=== PATIENT | female | born 1970 | race Caucasian/White ===

== ENCOUNTER 2017-07-13 11:54 | Emergency (ER) | payer OTHER ==
[2017-07-13] MEDS ORDERED: SODIUM CHLORIDE 0.9% 1000 ML INFUS.BAG IV ONE (11:55)
[2017-07-13] MEDS ORDERED: ONDANSETRON 4 MG/2 ML VIAL IVPUSH ONE (11:55)
[2017-07-13] MEDS ORDERED: ACETAMINOPHEN 1000 MG/100 ML VIAL (NON FORMULARY) IVPB ONE (11:55)
--- NOTE | 2017-07-13 11:55 | PDOC ---
History of Present Illness - General Chief Complaint: Pain, Acute Stated Complaint: LEFT FLANK PAIN Time Seen by Provider: 07/13/17 11:55 - History of Present Illness Initial Comments: 07/13/17 12:05 47yo female presents ambulatory from home c/o acute onset at 10am of L flank pain. States she was sitting at the table eating breakfast when the pain started in her back and radiated around to her LLQ. States the pain comes and goes and she cannot get comfortable. Pt states she had a normal bm this AM and no difficulty urinating. Pt states she has assoc n/v - 2 episodes that are nonbloody and nonbilious. Pt tearful and appears uncomfortable. Pt denies f/c. No cp/sob. No recent illness. States she had imaging done in [place] when she was younger because of recurrent bladder infections that showed "crystals in the kidney" on the Right. No prior episodes of similar pain. 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 PMHx: bladder infections when she was younger PSHx: c section x 3 Allergies: NKDA Home MEds: mirena Past History - Past Medical History Allergies/Adverse Reactions: Allergies Allergy/AdvReac Type Severity Reaction Status Date / Time No Known Allergies Allergy Verified 07/13/17 12:20 Home Medications: Ambulatory Orders Cephalexin Monohydrate [Keflex -] 500 mg PO Q8H #21 capsule 07/13/17 Ketorolac Tromethamine [Toradol] 10 mg PO TID PRN #21 tablet 07/13/17 Ondansetron [Ondansetron Odt] 8 mg PO TID PRN #10 tab.rapdis 07/13/17 Oxycodone HCl/Acetaminophen [Percocet 5-325 mg Tablet] 1 tab PO Q6H PRN #12 tablet MDD 4 tabs per day 07/13/17 Review of Systems - Review of Systems Able to Perform ROS?: Yes Is the patient limited Vietnamese proficient: No Constitutional: No: Chills, Fever HEENTM: No: Nose Pain, Throat Pain Respiratory: No: Cough, Shortness of Breath Cardiac (ROS): No: Chest Pain ABD/GI: Yes: Nausea, Vomiting, Abdominal cramping. No: Diarrhea : Yes: Flank Pain. No: Burning, Dysuria, Hematuria Musculoskeletal: Yes: Back Pain Integumentary: No: Rash Neurological: No: Headache, Numbness, Paresthesia All Other Systems: Reviewed and Negative *Physical Exam - Vital Signs 07/13/17 14:10 Selected Entries 07/13/17 11:55 Temperature 98.5 F Pulse Rate 61 Respiratory 17 Rate Blood Pressure 150/96 Blood Pressure 114 Mean O2 Sat by Pulse 100 Oximetry (%) Weight 61 kg - Physical Exam General Appearance: Yes: Nourished, Appropriately Dressed, Apparent Distress, Moderate Distress, Other (tearful) HEENT: positive: JAYMIE, Normal ENT Inspection, Pharynx Normal Neck: positive: Supple Respiratory/Chest: positive: Lungs Clear, Normal Breath Sounds. negative: Respiratory Distress Cardiovascular: positive: Regular Rhythm, Regular Rate, S1, S2. negative: Edema Gastrointestinal/Abdominal: positive: Normal Bowel Sounds, Tender (LLQ), Soft. 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 NML intact, Fully Oriented, Alert, Motor Strength 5/5, Other (ambulatory with a steady gait) ED Treatment Course - LABORATORY CBC & Chemistry Diagram: 07/13/17 12:00 07/13/17 12:00 Medical Decision Making - Medical Decision Making 07/13/17 12:36 a/p: 47yo female with L flank pain -acute onset and colicky in nature, concern for poss renal pathology/renal colic -will obtain labs, ua, ct abd/pelvis without contrast -will make NPO pending results -pain control -ivf hydration, nausea control -will monitor and reassess 07/13/17 13:30 reassess- pt feeling better, nausea controlled, pain 3/[address] findings 07/13/17 14:08 ct shows a distal 7mm L sided kidney stone normal renal function, but has mild hydro on the CT pain still controlled. pt updated on results. call placed to Urology - Dr. Rosenthal given size of stone and hydro. Pending call back. 07/13/17 14:[address] Coyne who recommends outpt follow up on Saturday morning. Recommends outpt abx. Pain control. 04/14/18 14:48 discussed the plan with the patient. pt agrees with the plan. will try outpt management of the pain. if she cannot tolerate the pain or has increasing nausea or vomiting she will return to the ED. answered all questions. Pt is sdtable for d/c to home *DC/Admit/Observation/Transfer Diagnosis at time of Disposition: Kidney stone, Hydronephrosis - Discharge Dispostion Disposition: HOME Condition at time of disposition: Stable Admit: No - Prescriptions Prescriptions: Cephalexin Monohydrate [Keflex -] 500 mg PO Q8H #21 capsule Ketorolac Tromethamine [Toradol] 10 mg PO TID PRN #21 tablet PRN Reason: Pain Ondansetron [Ondansetron Odt] 8 mg PO TID PRN #10 tab.rapdis PRN Reason: Nausea Oxycodone HCl/Acetaminophen [Percocet 5-325 mg Tablet] 1 tab PO Q6H PRN #12 tablet MDD 4 tabs per day PRN Reason: Pain - Referrals Referrals: Manny Zazueta MD [Staff Physician] - - Patient Instructions Printed Discharge Instructions: DI for Kidney Stones Additional Instructions: Please take all medications as prescribed. Please do not drive or operate heavy machinery while taking the percocet. Please call Dr. Zazueta first thing saturday morning to arrange for follow. If your symptoms worsen or you cannot tolerate the medications at home please return to the ED. If you develop fevers or chills while on the antbiotics please return to the ED as soon as possible. Please call your primary care physician to arrange for follow up. - Post Discharge Activity - Attestations Physician Attestion: 07/13/17 14:09 I, Dr. Sima Kc, DO, attest that this document has been prepared under my direction and personally reviewed by me in its entirety. I further attest, that it accurately reflects all work, treatment, procedures and medical decision -making performed by me.
[2017-07-13] MEDS ORDERED: KETOROLAC TROMETHAMINE 30 MG/1 ML VIAL IVPUSH ONE (12:04)
[2017-07-13 12:05] LABS: BASO % 0.8 % (0-2.0); EOS % 0.5 % (0-4.5); HEMATOCRIT 41.3 % (32.4-45.2); HEMOGLOBIN 13.7 GM/dl (10.7-15.3); LYMPH % 19.3 % (8-40); MCH 28.9 pg (25.7-33.7); MCHC 33.1 g/dl (32.0-36.0); MEAN CELL VOLUME 87.4 fl (80-96); MEAN PLT VOLUME 8.1 fl (7.5-11.1); MONO % 7.3 % (3.8-10.2); NEUT % 72.1 % (42.8-82.8); PLATELET COUNT 416 K/MM3 (134-434); RBC 4.73 M/mm3 (3.60-5.2); RDW 12.5 % (11.6-15.6); WHITE BLOOD COUNT 13.4 K/mm3 (4.0-10.8)
[2017-07-13 12:20] VITALS: BP 150/96; PULSE 61; TEMP 98.5; BMI 23.8
[2017-07-13 12:20] LABS: HCG,QUALITATIVE URINE NEGATIVE; PH,URINE 8.5 (4.5-8); URINE APPEARANCE CLOUDY; URINE BILIRUBIN Negative (NEGATIVE); URINE BLOOD 2+ (NEGATIVE); URINE COLOR YELLOW; URINE GLUCOSE (UA) Negative (NEGATIVE); URINE KETONE Negative (NEGATIVE); URINE LEUK ESTERASE Negative (NEGATIVE); URINE NITRITE Negative (NEGATIVE); URINE PROTEIN 1+ (NEGATIVE); URINE UROBILINOGEN 0.2 (0.2-1.0)
[2017-07-13 12:23] LABS: ALBUMIN 4.3 g/dl (3.5-5.0); ALK PHOS 53 U/L (32-92); ANION GAP 9 (8-16); BILIRUBIN,TOTAL 0.5 mg/dl (0.2-1.0); BLOOD UREA NITROGEN 13 mg/dl (7-18); CALCIUM 9.6 mg/dl (8.4-10.2); CHLORIDE 103 mmol/L (98-107); CO2 26 mmol/L (22-28); CREATININE 0.9 mg/dl (0.6-1.3); GLUCOSE,RANDOM 113 mg/dl (74-106); POTASSIUM 4.3 mmol/L (3.5-5.1); SGOT/AST 21 U/L (10-42); SGPT/ALT 11 U/L (10-40); SODIUM 138 mmol/L (136-145); TOT PROT 7.4 g/dl (6.4-8.3)
[2017-07-13 12:26] LABS: AMORP URATES MODERATE /hpf (NONE SEEN); EPI CELLS FEW /HPF; URINE RBC 50-80 /hpf (0-3); URINE WBC 0-3 (0-5)
[2017-07-13] MEDS ORDERED: morphine CARPU-JECT 2 MG/1 ML DISP.SYRIN IVPUSH ONE (13:10)
[2017-07-13 13:11] LABS: LIPASE 184 U/L (73-393)
[2017-07-13] MEDS ORDERED: CEPHALEXIN MONOHYDRATE 500 MG CAPSULE (UD) PO ONE (14:18)
[2017-07-13] MEDS ORDERED: CEPHALEXIN MONOHYDRATE 500 MG CAPSULE (UD) ONE (15:01)
== END 2017-07-13 15:48 | disposition home or self-care (01) ==
LOC: FER 11:54
PROC: 3E0333Z Introduction of Anti-inflammatory into Peripheral Vein, Percutaneous Approach (ICD-10-PCS; principal; 2017-07-13)
PROC: 3E033GC Introduction of Other Therapeutic Substance into Peripheral Vein, Percutaneous Approach (ICD-10-PCS; 2017-07-13)
PROC: 3E0337Z Introduction of Electrolytic and Water Balance Substance into Peripheral Vein, Percutaneous Approach (ICD-10-PCS; 2017-07-13)
DX: N20.0 Calculus of kidney (principal); N13.30 Unspecified hydronephrosis
CPT/HCPCS: 36415; 74176-TC; 80053; 81003; 81015; 83690; 84703; 85025; 99285-25; J7030